=== PATIENT | female | born 1985 | race Caucasian/White ===

== ENCOUNTER → 2023-11-30 | Outpatient (REF) ==
[2023-11-30 12:06] LABS: RSV AMPLIFICATION POSITIVE (NEGATIVE)
== END ==
LOC: M EMP 08:12
PROVIDERS: ATTEND Family Medicine
DX: Z20.9 Contact with and (suspected) exposure to unspecified communicable disease (principal)

== ENCOUNTER → 2024-03-23 | Outpatient (CLI) | payer OTHER | LOC: M WUC 15:05 | PROVIDERS: ATTEND Nurse Practitioner Family | DX: M25.531 Pain in right wrist (principal) ==

== ENCOUNTER → 2025-03-14 | Outpatient (REF) ==
[2025-03-14 08:16] LABS: SOFIA COVID ANTIGEN NEGATIVE (NEGATIVE)
== END ==
LOC: M EMP 07:57
PROVIDERS: ATTEND Family Medicine
DX: Z01.89 Encounter for other specified special examinations (principal)